=== PATIENT | male | born 1960 | race Caucasian/White ===

== ENCOUNTER 2019-02-19 20:04 | Emergency (ER) | payer MEDICARE, MEDICAID ==
[2019-02-19 20:25] VITALS: BP 103/76
[2019-02-19] MEDS ORDERED: Sulfamethox/Trimethoprim DS 800/160* TAB PO ONE (20:39)
--- NOTE | 2019-02-19 20:48 | UC ---
Skin Complaint HPI - HPI Summary HPI Summary: 2 DAYS AGO HAD A LESION THAT STARTED LIKE A PIMPLE ON HIS LEFT KNEE WHICH HE PICKED AND IT IS NOW MORE RED, WARM AND SWOLLEN. NO JOINT INVOLVEMENT. PATIENT HAS FULL RANGE OF MOTION IN HIS KNEE. NO FEVER. HAD A SIMILAR ABSCESS FOUR MONTHS AGO WHICH RESOLVED WITH ANTIBIOTICS. - History of Current Complaint Chief Complaint: UCSkin Time Seen by Provider: 02/19/19 20:13 Stated Complaint: KNEE ISSUE Hx Obtained From: Patient Onset/Duration: Gradual Onset, Lasting Days, Still Present Timing: Constant Onset Severity: Moderate Current Severity: Moderate Pain Intensity: 8 Pain Scale Used: 0-10 Numeric Location: Discrete - LEFT PROXIMAL ANTERIOR KNEE Character: Redness, Raised, Painful Aggravating Factor(s): Touch Alleviating Factor(s): Nothing - Allergy/Home Medications Allergies/Adverse Reactions: Allergies Allergy/AdvReac Type Severity Reaction Status Date / Time No Known Allergies Allergy Verified 02/19/19 20:25 Home Medications: Home Medications ALPRAZolam [Alprazolam] 2 mg PO TID 02/19/19 [History Confirmed 02/19/19] Bupropion XL* [Wellbutrin XL *] 300 mg PO DAILY 02/19/19 [History Confirmed 06/05] Gabapentin CAP(*) [Neurontin 300 CAP(*)] 600 mg PO QID 02/19/19 [History Confirmed 02/19/19] Naproxen [Naproxen 500 mg tab] 500 mg PO BID PRN 02/19/19 [History Confirmed 06/05] Oxycodone TAB(NF) [Oxycodone HCl 10 MG] 30 mg PO TID 02/19/19 [History Confirmed 02/19/19] Tapentadol ER (NF) [Nucynta ER (NF)] 100 mg PO BID 02/19/19 [History Confirmed 02/19/19] Valproic Acid CAP(*) [Depakene CAP(*)] 250 mg PO QPM 02/19/19 [History Confirmed 02/19/19] PMH/Surg Hx/FS Hx/Imm Hx - Additional Past Medical History Additional PMH: "SPINE AND NERVE ISSUES". PT WILL NOT ELABORATE FURTHER - Surgical History Surgical History: Yes Surgery Procedure, Year, and Place: "irrelevant" - Family History Known Family History: Positive: Non-Contributory - Social History Alcohol Use: Daily Alcohol Amount: 1 Substance Use Type: None Smoking Status (MU): Current Some Day Smoker Review of Systems All Other Systems Reviewed And Are Negative: Yes Constitutional: Positive: Negative Skin: Positive: Other - ABSCESS LEFT KNEE Respiratory: Positive: Negative Cardiovascular: Positive: Negative Gastrointestinal: Positive: Negative Physical Exam Triage Information Reviewed: Yes Appearance: Well-Appearing, No Pain Distress, Well-Nourished Vital Signs: Initial Vital Signs Temp 98.5 F 02/19/19 20:18 Pulse 100 02/19/19 20:18 Resp 16 02/19/19 20:18 BP 103/76 02/19/19 20:18 Pulse Ox 97 02/19/19 20:18 Vital Signs Reviewed: Yes Eyes: Positive: Conjunctiva Clear ENT: Positive: Hearing grossly normal Neck: Positive: Supple Respiratory: Positive: No respiratory distress, No accessory muscle use Cardiovascular: Positive: Pulses Normal Abdomen Description: Positive: Soft Musculoskeletal: Positive: ROM Intact, Edema @ - LEFT KNEE Neurological: Positive: Alert Psychological: Positive: Age Appropriate Behavior Skin: Positive: Other - 6CM X 4.5CM AREA OF ERYTHEMA AND INDURATION LEFT ANTERIOR KNEE WITH 18CM DIAMETER AREA OF SURROUNDING FAINTER ERYTHEMA. NO FLUCTUANCE. Course/Dx - Course Course Of Treatment: ABSCESS OF LEFT KNEE NOT AMENABLE TO INCISION AND DRAINAGE TODAY. BACTRIM TWICE DAILY FOR 10 DAYS. ADVISED HOT SOAKS/WARM COMPRESSES. PATIENT ALREADY HAS NARCOTIC PAIN MEDICATION. TO THE ER WITHOUT FAIL IF SYMPTOMS WORSEN. FOLLOW -UP WITH HIS PCP IN [place] WHEN HE RETURNS IN 2 DAYS. - Diagnoses Provider Diagnosis: Abscess of left knee Discharge ED - Sign-Out/Discharge Documenting (check all that apply): Patient Departure All imaging exams completed and their final reports reviewed: No Studies - Discharge Plan Condition: Stable Disposition: HOME Prescriptions: Sulfamethox/Trimethoprim DS* [Bactrim DS 800/160 TAB*] 1 tab PO BID #18 tab Patient Education Materials: Abscess (ED) Referrals: [facility] [Outside] - If Needed Additional Instructions: TAKE THE ANTIBIOTICS TWICE DAILY FOR THE FULL 10 DAYS. WARM COMPRESSES/HOT SOAKS 3 OR 4 TIMES DAILY ABLE. KEEP LEG ELEVATED WHILE SEATED. GO TO THE ER WITHOUT FAIL IF YOU ARE NOT NOTICING IMPROVEMENT OVER THE NEXT 2 OR 3 DAYS OR IF YOU DEVELOP FEVER, INCREASING PAIN, DECREASED RANGE OF MOTION OR ANY OTHER CONCERNING SYMPTOMS. - Billing Disposition and Condition Condition: STABLE Disposition: Home
== END 2019-02-19 20:52 | disposition home or self-care (01) ==
LOC: UCEAST 20:04
DX: L02.416 Cutaneous abscess of left lower limb (principal); F17.200 Nicotine dependence, unspecified, uncomplicated
CPT/HCPCS: 99202; A9270-GY; G0463